=== PATIENT | male | born 1960 | race Caucasian/White ===

== ENCOUNTER 2019-10-15 11:02 | Outpatient (CLI) | payer OTHER, SELFPAY ==
--- NOTE | 2019-10-15 | ECG_ITS ---
Measurements Intervals [place] Rate: 59 P: 41 OR: 165 QRS: -10 QRSD: 85 T: 9 QT: 411 QTc: 409 Interpretive Statements SINUS BRADYCARDIA EARLY PRECORDIAL R/S TRANSITION VOLTAGE CRITERIA FOR LVH BORDERLINE T WAVE ABNORMALITY- INFERIOR LEADS BORDERLINE ECG Electronically Signed On 10-15-2019 14:44:35 CDT by Jeff Yap D.O.
== END 2019-10-15 11:03 | disposition home or self-care (01) ==
PROVIDERS: PCP Family Medicine; Visit Provider Orthopaedic Surgery
DX: Z01.818 Encounter for other preprocedural examination (principal); R94.31 Abnormal electrocardiogram [ECG] [EKG]
CPT/HCPCS: 93005

== ENCOUNTER 2021-03-11 10:05 | Emergency (ER) | payer OTHER, SELFPAY ==
[2021-03-11 10:16] VITALS: BP 147/84; PULSE 76; RESP 18; TEMP 36.8; O2SAT 98
--- NOTE | 2021-03-11 10:33 | ED.URI ---
HPI - URI/Sore Throat General Chief Complaint: Upper Respiratory Infection Stated Complaint: nasal congestion Time Seen by Provider: 03/11/21 10:18 Source: patient and RN notes reviewed Mode of arrival: ambulatory Limitations: no limitations History of Present Illness HPI Narrative: Patient presents today complaining of congestion and rhinorrhea since yesterday. Denies any additional symptoms, but wanted to come in and get checked for sinus infection. He has tried Tylenol Cold and flu with mild relief. He has been vaccinated against COVID-19, but has not yet had an influenza vaccine this season. MD elicited complaint: nasal congestion Related Data Allergies Allergy/AdvReac Type Severity Reaction Status Date / Time naproxen Allergy Mild Itching Verified 03/11/21 10:22 Review of Systems Review of Systems: CONSTITUTIONAL: Denies body aches, fever, chills, or sweats. EYES: Denies visual changes, redness, or discharge. ENT: Denies sore throat, or otalgia.+ Congestion, rhinorrhea CARDIOVASCULAR: Denies chest pain, palpitations, or edema. RESPIRATORY: Denies cough or dyspnea. GASTROINTESTINAL: Denies abdominal pain, nausea, vomiting, or diarrhea. GENITOURINARY: Denies dysuria or hematuria. SKIN: Denies rash, itching, or wounds. MUSCULOSKELETAL: Denies back pain, joint pain, or myalgia. NEUROLOGIC: Denies headache, numbness, tingling, or weakness. PSYCH: Denies depression or anxiety. [facility] Past Medical History Medical History (Updated 03/11/21 @ 10:35 by Dolly Alanis, CYNTHIA, ) Essential hypertension Hyperglycemia Numbness and tingling in left hand Surgical History Surgical History History of carpal tunnel surgery History of total right knee replacement (TKR) Family History Family History Other Hypertension Social History Social History Smoking status: Never smoker Second hand tobacco smoke exposure: No Alcohol intake: never Substance use: never Substance use type: does not use Gender identity (if verbalized by the patient): Male Spiritual care concerns: No Agree to blood products: Yes Comments At time of signature, I have reviewed and agree with nursing past medical, surgical, social and family history unless otherwise noted. Please see nursing chart for further information. There is no relevant family history pertinent to the presenting complaint Exam Narrative: GENERAL: Well-appearing, well-nourished, and in no acute distress. HEAD: Normocephalic, atraumatic. EYES: EOMI. No redness or drainage. Conjunctivae normal. ENT: Mucous membranes pink and moist. Nares clear. No rhinorrhea. TMs normal bilaterally. Throat normal. Uvula midline. NECK: Normal AROM. Supple. No lymphadenopathy. CHEST: No respiratory distress. Clear to auscultation. HEART: Regular rate and rhythm. No murmur appreciated. Normal peripheral pulses. EXTREMITIES: Normal range of motion. No edema. SKIN: Warm, dry, no rash. Capillary refill normal. Normal skin turgor. NEURO: No focal deficits. Alert and oriented x3. Gait steady. PSYCH: Normal affect. No signs of depression or anxiety. Course Vital Signs Vital signs: Vital Signs Temperature 98.2 F 03/11/21 10:16 Pulse Rate 76 03/11/21 10:16 Respiratory Rate 18 03/11/21 10:16 Blood Pressure 147/84 H 03/11/21 10:16 Pulse Oximetry 98 03/11/21 10:16 Temperature 98.2 F 03/11/21 10:16 Pulse Rate 76 03/11/21 10:16 Respiratory Rate 18 03/11/21 10:16 Blood Pressure 147/84 H 03/11/21 10:16 Pulse Oximetry 98 03/11/21 10:16 Reviewed. Pt has been instructed to follow up with his PCP regarding his elevated blood pressure today. MDM - URI/Sore Throat Differential Diagnosis Differential diagnosis: Likely upper respiratory infection, otitis media, sinusitis an
== END 2021-03-11 10:47 | disposition home or self-care (01) ==
PROVIDERS: Emergency Provider Nurse Practitioner; PCP Family Medicine
DX: J06.9 Acute upper respiratory infection, unspecified (principal); I10 Essential (primary) hypertension; Z96.651 Presence of right artificial knee joint
CPT/HCPCS: 99211; G0463

== ENCOUNTER → 2021-09-30 10:17 | Outpatient (CLI) | payer OTHER, SELFPAY ==
--- NOTE | ~2021-09-30 | XR_ITS ---
XR hip RT 2V w AP pelvis DATE: 09/30/2021 10:30 INDICATION: Right hip pain for 6 months TECHNIQUE: AP pelvis. AP and lateral views of right hip COMPARISON: None FINDINGS: No pelvic fracture or bone destruction. Normal alignment at the pubic symphysis and sacroil iac joints. No fracture or dislocation, avascular necrosis or bone destruction of the right hip. There is slight degenerative spurring of the right femoral head. IMPRESSION: Minimal right hip osteoarthritis Reviewed, dictated and finalized at location A.
== END ==
PROVIDERS: PCP Family Medicine; Visit Provider Family Medicine
DX: M25.551 Pain in right hip (principal); M16.11 Unilateral primary osteoarthritis, right hip
CPT/HCPCS: 73502

== ENCOUNTER 2021-10-15 00:48 | Day surgery (SDC) | payer OTHER, SELFPAY ==
[2021-10-13 10:01] VITALS: BMI 33.1
--- NOTE | 2021-10-13 10:03 | SUR.PREOP ---
Report to the Outpatient Waiting Room, entrance under the green pavilion located off [facility], at time _1000 on date _10/15/21 . OR Time: _1200 . - You and your visitor will be asked a series of questions to screen for COVID 19 for your protection. - Only one visitor is allowed at this time. - The patient visitor is requested to leave or wait in car when not with patient. - A mask is required within the hospital. Patients may have clear liquids (water, carbonated beverages, clear teas, apple juice) until 3 hours prior to surgery with a maximum of 20 ounces. - No food from midnight until time of surgery - Infants may have breast milk until 4 hours before surgery, infant formula 6 hours prior to surgery. - Children will be allowed to drink immediately following surgery. If applicable, please bring a bottle or sippy cup to assist with drinking. Juice, water, soda, and popsicles are readily available. For infants on formula, please bring formula the day of surgery. Pacifiers are allowed. Take the following medications with a SIP of water the morning of surgery: ___n/a Medications to discontinue per physician n/a Date to take last dose__n/a Please no make-up, nail taiwanese, hairspray, perfume, deodorant, or body powder the day of surgery. No jewelry (including any body piercings) or valuables the day of surgery, leave them at home. Please take a shower or bath the night before, or the morning of, surgery with an antibacterial soap. Wear comfortable, loose fitting clothing. Children are encouraged to wear pajamas. hibiclens shower am of surgery - Jewelry must be removed prior to entering the operating room. Rings and piercings that are not removed may be cut off. - The hospital will not accept responsibility for valuables. - Please leave all valuables, including medications, at home the day of surgery. If you are going home after surgery, a licensed hyster driver must drive you home. - NO public transportation without another adult. - We recommend that an adult stay with you for 24 hours following discharge. - We also recommend that you do not drive, make important decision, drink alcoholic beverages, or take any drugs that were not prescribed by your health care provider for at least 24 hours after your discharge time. For Pediatric surgeries, we recommend two adults accompany the child home (only one inside the building at this time). Follow any additional instructions given to you from your surgeon. If you or anyone in your household have experienced Covid symptoms in the past week, please notify your surgeon or the nurse liaison at the phone number below for possible testing. Telephone instructions given to _xiomara stephenson and asked if any additional questions and then verbalized understanding. Patient advised to call surgeon office or pre surgery nurse liaison [phone] if any additional questions.
[2021-10-15] MEDS: ACETAMINOPHEN 500 MG TABLET 1000 MG PO (10:37)
[2021-10-15] MEDS: LACTATED RINGERS 1,000 ML 30 ML IV CONT ×2 (10:50→13:36)
--- NOTE | 2021-10-15 11:10 | WPDANESEPPF ---
Anes - Initial Pre Proc Eval Procedure: Operation Date: 10/15/21 12:00 Proposed Procedures p Open Left Inguinal Hernia Repair - Gigi Lorenzo MD Date/Time: 10/15/21 11:10 Surgeon: Gigi Lorenzo MD Pre Op Diagnosis: left inguinal hernia Patient Data Age: 61 Gender: M Height: 1.65 m Weight: 90.45 kg Allergies Allergy/AdvReac Type Severity Reaction Status Date / Time naproxen Allergy Mild Itching Verified 10/15/21 10:29 Home Medications Medication Instructions Recorded Confirmed Type atorvastatin 40 mg tablet (Lipitor) 40 mg PO DAILY #90 tabs 03/30/21 10/15/21 Rx lisinopril 20 mg tablet 20 mg PO DAILY #90 tabs 03/30/21 10/15/21 Rx sildenafil 100 mg tablet (Viagra) 100 mg PO DAILY PRN sexual 09/14/21 10/13/21 Rx activity #14 tabs gabapentin 300 mg capsule 300 mg PO PRN PRN pain 10/13/21 10/15/21 History ibuprofen 800 mg tablet 800 mg PO PRN 10/13/21 10/15/21 History Patient hx anesthesia problems: none Family hx anesthesia problems: none Results Review: All pre-operative results and documents have been reviewed as part of the pre-operative evaluation. [facility] Past Medical History Medical History Erectile dysfunction Essential hypertension Hyperglycemia Hyperlipidemia Numbness and tingling in left hand Surgical History Surgical History History of carpal tunnel surgery History of total right knee replacement (TKR) Family History Family History Father Cerebrovascular accident Other Hypertension Social History Social History Smoking status: Never smoker Second hand tobacco smoke exposure: No Alcohol intake: never Substance use: never Substance use type: does not use Living arrangements: with family Gender identity (if verbalized by the patient): Male Spiritual care concerns: No Agree to blood products: Yes Anes - Eval Final PreProcedure Day of Procedure 10/15/21 11:10 Patient weight: obese Heart: regular rate and rhythm Lungs: clear to auscultation Airway: Mallampati scale class II Neurological: alert and oriented Last oral intake: >/= 8 hours ASA classification: III Emergent: no Anesthesia type and monitoring: general GIVS and standard monitoring Results Review: All pre-operative results and documents have been reviewed as part of the pre-operative evaluation. Informed Consent: The patient's anesthetic plan and its attendant risks and benefits were discussed with the patient/family/POA. Questions were solicited and answers provided to the satisfaction of the patient/family/POA.
[2021-10-15 11:19] VITALS: BP 141/64; PULSE 53; RESP 16; TEMP 36.1; O2SAT 99
--- NOTE | 2021-10-15 11:34 | WPDHPUPDATE1 ---
History and Physical Update Update Date/Time: 10/15/21 11:34 History and Physical has been reviewed, including an updated exam of the patient. There are NO changes in the patient's condition. Risks, benefits, and alternatives have been discussed and questions answered. Patient agrees to proceed with procedure.
[2021-10-15] MEDS: ceFAZolin 2 GM/D5W 50 ML 2 GM/50 ML BAG IVPB (11:47)
[2021-10-15] MEDS: LIDO 1%/EPINEPHRINE/PF 1:200,000 30 ML VIAL XX (11:47)
[2021-10-15 13:17] VITALS: BP 119/66; PULSE 62; RESP 12; O2SAT 95
--- NOTE | 2021-10-15 13:34 | W.PM.PROC2 ---
Procedure Note - Detailed Date of Procedure 10/15/21 Pre-op Diagnosis left inguinal hernia Post-op Diagnosis Same Procedure Performed Left inguinal hernia repair with extra-large PerFix Light plug and patch Surgeon Gigi Lorenzo MD Director Of Assessment Cheryl Borja CORPORATE SAFETY COORDINATOR CORPORATE SAFETY COORDINATOR Anesthesia General (G IV S) and Local (1% lidocaine with epinephrine) Indications Patient was noted by his primary care physician to have a large left inguinal hernia. He has occasional discomfort associated with this. He was seen in the office and is now taken to surgery for left inguinal hernia repair. Findings Large direct left inguinal hernia noted. No indirect hernia. Description of Procedure Patient was taken to surgery and anesthesia was introduced. The left groin and genitalia were prepped and draped. The proposed incision was marked on the skin in the left inguinal region. Local anesthetic was infiltrated into the skin and the deeper subcutaneous tissues. Incision was made deepened through the subcutaneous. Crossing veins were cauterized and divided. We continued our dissection through Gisele's fascia and down to the external oblique aponeurosis. The aponeurosis was then exposed as was the external ring. Additional local was infiltrated deep to the aponeurosis in the area of the spermatic cord. The aponeurosis was opened laterally and extended medially through the external ring. The leaves of the aponeurosis were freed from the underlying inguinal canal contents. A large hernia was evident her. I carefully dissected the hernia sac free from the spermatic cord. Was a large direct hernia. I checked in the spermatic cord and no indirect hernia was noted. I did a resected around the base of the hernia. I then scored through the transversalis fascia circumferentially just off the base with the cautery. The hernia was then dunked into the retroperitoneum, reducing the hernia. The extra-large PerFix Light plug was then placed in the defect. The edges were sutured to the transversalis fascia with interrupted 3-0 Vicryl suture. 3-0 Vicryl suture were then used to markedly reduce the size of the defect by suturing some of the edges to 1 another. The patch was then cut to the appropriate size and placed over the inguinal canal floor. The lateral leaves were passed beyond the cord. I then placed the 1st piece of Xaracoll over the mesh. The cord and ilioinguinal nerve were then placed over the Xaracoll. The ilioinguinal nerve had been left attached to the cord and avoided through the surgery. The external oblique aponeurosis was then closed with interrupted 3-0 Vicryl suture. The 2nd piece of Xaracoll was laid over the aponeurosis. Gisele's fascia was closed with interrupted 3-0 Vicryl suture. The last piece of Xaracoll was then placed in the subcutaneous. The skin was closed with interrupted 4-0 Vicryl subcuticular skin suture. The wound was dressed with Exofin surgical adhesive. The patient was awakened and taken to recovery in good condition. Sponge and needle counts were correct x2. Implants Extra large PerFix Light plug and patch, Xaracoll Estimated Blood Loss -5 Drains No Packing No Pathology None sent Complications No immediate complications Condition Stable Disposition Same day [facility] Billing Surgery - Charge Forward: Surgery Billing (Left inguinal hernia repair)
[2021-10-15 13:40] VITALS: BP 123/78; PULSE 64; RESP 12; O2SAT 97
[2021-10-15 14:10] VITALS: BP 137/66; PULSE 69; RESP 12
[2021-10-15 14:40] VITALS: BP 135/71; PULSE 59; RESP 12
[2021-10-15 15:10] VITALS: BP 123/72; PULSE 59; RESP 12
== END 2021-10-15 15:33 | disposition home or self-care (01) ==
PROVIDERS: PCP Family Medicine; Visit Provider Surgery
PROC: (CPT 49505; principal; 2021-10-15 12:00)
DX: K40.90 Unilateral inguinal hernia, without obstruction or gangrene, not specified as recurrent (principal); I10 Essential (primary) hypertension; R73.9 Hyperglycemia, unspecified; E78.5 Hyperlipidemia, unspecified; E66.9 Obesity, unspecified; Z68.33 Body mass index [BMI] 33.0-33.9, adult; R20.2 Paresthesia of skin; R20.0 Anesthesia of skin
CPT/HCPCS: 49505; A9270; C1781; J0690; J1100; J1170; J2250; J2405; J2704; J3010; J7120

== ENCOUNTER 2021-11-22 10:24 | Emergency (ER) | payer OTHER, SELFPAY ==
--- NOTE | ~2021-11-22 | XR_ITS ---
EXAMINATION: XR abdomen/kub 1V DATE: 11/22/2021 11:02 INDICATION: Right lower back pain with urinary frequency TECHNIQUE: A supine view of the abdomen on 2 radiographs was obtained. COMPARISON: 01/22/2014 FINDINGS: No dilated loops of gas-filled bowel to suggest obstruction. Couple prominent unchanged phleboliths i n the left hemipelvis. No urolithiasis. Mild lumbar levoscoliosis with severe spondylosis. IMPRESSION: 1. No urolithiasis. Reviewed, dictated and finalized at location A. IMPRESSION: 1. No urolithiasis.
[2021-11-22 10:38] VITALS: BP 154/80; PULSE 70; RESP 20; TEMP 36.6; O2SAT 100
--- NOTE | 2021-11-22 11:06 | ED.GENADULT ---
HPI - General Adult General Chief complaint: Back Pain/Injury Stated complaint: Lower Rt Back Pain,Groin Pain,Frequent Urination Source: patient Mode of arrival: ambulatory Limitations: no limitations History of Present Illness HPI narrative: Patient presents for evaluation of right lower back pain and right inguinal pain intermittently for the last 2 to 3 days. He feels like the pain in his right lower back is similar to sensation of a pulled muscle . Pain in right inguinal region is burning sensation. He cannot identify any precipitating cause or injury. Pain occurs multiple times per day and lasts about five minutes. Pain in right lower back does not always occur at same time as pain in right inguinal region. He currently denies any pain. Patient does report urinary frequency. No fever, chills, nausea, vomiting, dysuria, hematuria, testicular pain or urethral discharge. He is sexually active with his spouse who is not experiencing any symptoms. He had a left inguinal hernia repair about one month ago and was not sure if symptoms were related. Last bowel movement was yesterday, solid in consistency, without the presence of blood or mucous in the stool. Related Data Home Medications Medication Instructions Recorded Confirmed gabapentin 300 mg capsule 300 mg PO PRN PRN pain 10/13/21 11/22/21 ibuprofen 800 mg tablet 800 mg PO PRN 10/13/21 11/22/21 Allergies Allergy/AdvReac Type Severity Reaction Status Date / Time naproxen Allergy Mild Itching Verified 11/22/21 10:27 Review of Systems Review of Systems: CONSTITUTIONAL: Denies fever, chills, or sweats. EYES: Denies visual changes, redness, or discharge. ENT: Denies rhinorrhea, congestion, sore throat, or otalgia. CARDIOVASCULAR: Denies chest pain, palpitations, or edema. RESPIRATORY: Denies cough or dyspnea. GASTROINTESTINAL: Denies abdominal pain, nausea, vomiting, or diarrhea. GENITOURINARY: Reports urinary frequency. Denies dysuria or hematuria. SKIN: Denies rash or itching. MUSCULOSKELETAL: Reports right lower back pain and right inguinal pain. Denies joint pain. NEUROLOGIC: Denies headache, numbness, dizziness, or weakness. PSYCHIATRIC: Denies anxiety or depression. [facility] Past Medical History Medical History Erectile dysfunction Essential hypertension Hyperglycemia Hyperlipidemia Numbness and tingling in left hand Surgical History Surgical History History of carpal tunnel surgery History of left inguinal hernia repair 10/15/2021 History of total right knee replacement (TKR) Family History Family History Father Cerebrovascular accident Other Hypertension Social History Social History Smoking status: Never smoker Second hand tobacco smoke exposure: No Alcohol intake: never Substance use: never Substance use type: does not use Gender identity (if verbalized by the patient): Male Spiritual care concerns: No Agree to blood products: Yes Exam Narrative: GENERAL: Well-appearing, well-nourished, and in no acute distress. HEAD: Normocephalic, atraumatic. EYES: PERRLA and EOMI. ENT: Nares clear, no rhinorrhea or epistaxis. Mucous membranes moist. Oropharynx without tonsillar hypertrophy exudate or other lesions. Bilateral TMs pearly lama nonbulging NECK: Supple. No adenopathy or masses. No carotid bruits or JVD CHEST: Clear to auscultation. No respiratory distress. No wheezes rales or rhonchi HEART: Regular rate and rhythm. No murmur heard. Normal peripheral pulses. ABDOMEN: Soft, nontender, nondistended, normal active bowel sounds. EXTREMITIES: Normal range of motion. No edema. SKIN: Linear surgical incision to left inguinal region which is well approximated without any associated erythema
== END 2021-11-22 11:30 | disposition home or self-care (01) ==
PROVIDERS: Emergency Provider Nurse Practitioner; PCP Family Medicine
DX: M54.50 Low back pain, unspecified (principal); R10.31 Right lower quadrant pain; I10 Essential (primary) hypertension; E78.5 Hyperlipidemia, unspecified; Z96.651 Presence of right artificial knee joint
CPT/HCPCS: 74018; 81003; 99213; G0463

== ENCOUNTER 2023-11-13 09:24 | Emergency (ER) | payer MEDICARE, OTHER, SELFPAY ==
[2023-11-13 09:33] VITALS: BP 125/59; PULSE 65; RESP 18; TEMP 36.9; O2SAT 95
--- NOTE | 2023-11-13 09:41 | ED.GENADULT ---
HPI - General Adult General Chief complaint: Dental/Oral Stated complaint: Mouth/Throat Irritation Source: patient Mode of arrival: ambulatory Limitations: no limitations History of Present Illness HPI narrative: 63-year-old male presents to [facility] with complaints of tongue feeling ?raw? for the past 2-3 days. Patient reports he has not talked his primary care provider concerning symptoms. Patient reports that did have COVID approximately 2-3 weeks ago. Patient denies recent antibiotic use. Patient denies fever, body aches, chills, nausea, vomiting, diarrhea, chest pain, shortness of breath or wheezing. Onset (ago): day(s) (3) Location: mouth Relieving factors: none Exacerbating factors: none Associated symptoms: denies other symptoms Treatments prior to arrival: none Related Data Home Medications Medication Instructions Recorded Confirmed sulfasalazine 500 mg tablet 0.5 g PO BID 09/28/23 11/13/23 hydroxychloroquine 200 mg tablet 200 mg PO BID 11/13/23 11/13/23 (Plaquenil) peg 400-propylene glycol 0.4 %-0.3 2 drp EACH EYE DAILY 11/13/23 11/13/23 % eye drops (Systane (propylene glycol)) Allergies Allergy/AdvReac Type Severity Reaction Status Date / Time No Known Allergies Allergy Verified 11/13/23 09:26 Review of Systems Constitutional: Constitutional: Denies chills, Denies fatigue, Denies fever(s) and Denies weakness ENT: Denies vertigo, Denies dizziness, Denies epistaxis and Denies nasal congestion Comments: Raw feeling to tongue Cardiovascular: Cardiovascular: Denies chest pain Respiratory: Respiratory: Denies cough, Denies dyspnea and Denies wheezing Gastrointestinal: Gastrointestinal: Denies diarrhea, Denies nausea and Denies vomiting Integumentary/Breasts: Skin/Breast: Denies pruritus, Denies erythema, Denies rash and Denies skin ulcer PMFSH Past Medical History Medical History Arthritis Encounter for general adult medical examination with abnormal findings Encounter for immunization Encounter for other specified surgical aftercare Encounter for screening for malignant neoplasm of prostate Erectile dysfunction Essential hypertension Hematuria Hyperglycemia Hyperlipidemia Numbness and tingling in left hand Screening for prostate cancer Screening, deficiency anemia, iron Surgical History Surgical History History of carpal tunnel surgery History of left inguinal hernia repair 10/15/2021 History of total right knee replacement (TKR) Family History Family History Father Cerebrovascular accident Other Hypertension Social History Social History Smoking status: Never smoker Second hand tobacco smoke exposure: No Alcohol intake: never Substance use: never Substance use type: does not use Do You Feel Safe in your Home?: Yes Lack of Transportation: No Lack of Food: Never True Current Housing: I Have Housing Concerned About Future Housing: No Difficulty Paying Gas/Electric Bills: No Difficulty Paying for Meds: No Currently Unemployed: No Education: Bachelor's Degree Difficulty w/ Childcare or Family Care: No Living arrangements: with family Occupation/Education: retired Gender identity (if verbalized by the patient): Male Sexual Orientation (if Verbalized by the Patient): Straight or Heterosexual Spiritual care concerns: No Agree to blood products: Yes Comments At time of signature, I agree with nursing past medical, surgical, social and family history. There is no relevant family history pertinent to the presenting complaint. Exam Const: General: healthy appearing and no acute distress Nutritional Appearance: well nourished Orientation/consciousness: patient oriented x3 Limitations: no limitations [facility]
== END 2023-11-13 09:46 | disposition home or self-care (01) ==
PROVIDERS: Emergency Provider Nurse Practitioner Family; PCP Family Medicine
DX: B37.0 Candidal stomatitis (principal); M19.90 Unspecified osteoarthritis, unspecified site; I10 Essential (primary) hypertension; E78.5 Hyperlipidemia, unspecified; Z96.651 Presence of right artificial knee joint
CPT/HCPCS: 99213; G0463

== ENCOUNTER 2024-11-01 12:07 | Outpatient (CLI) | payer MEDICARE, OTHER, SELFPAY ==
--- OUTSIDE RECORDS SUMMARY | 2024-11-01 12:11 | XMS_ITS | Clinical Summary ---
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 Gender Identity Not on file Sexual Orientation Not on file Plan of Treatment Health Maintenance Due Date Last Done Comments Pre-Diabetes and Diabetes Screening 1960 COLORECTAL SCREENING 2003 Colorectal Cancer Screening 2003 FIT-DNA Q 3 years 2003 FIT/FOBT Q 1 year 2003 Flex Sig/CT Colonography Q 5 years 2003 DTAP/TDAP/TD VACCINES (2 - T d or Tdap) 04/25/2020 04/25/2010 ZOSTER VACCINE (2 of 2) 12/23/2022 10/28/2022 INFLUENZA VACCINE (#1) 2024 4, 02/07/2017, 01/24/2015, Additional history exists RSV VACCINE (60+ or ) (1 - 1-dose 75+ series) 2033 PNEUMOCOCCAL VACCINE 50+ YEARS Completed 07/06/2022 , 09/20/2013 Insurance [employer]
--- NOTE | 2024-11-01 12:39 | ECHO_ITS ---
Patient Info Name: Dmitriy Islas Age: 64 years : 1960 Gender: Male Ht: 65 in Wt: 199 lbs BSA: 2.07 m2 HR: 84 bpm BP: 125 / 70 mmHg Technical Quality: Good Exam Date: 11/01/2024 12:45 PM Patient Status: O Admit Date: 11/01/2024 Exam Type: CA echo doppler color flow Complete two-dimensional, color flow and Doppler transthoracic echocardiogram is performed. Grid Molder: Raquel Villa Attending Provider: Ling Archer Summary 1. Complete two-dimensional, color flow and Doppler transthoracic echocardiogram is performed. 2. Left ventricular chamber dimension is normal. 3. Left ventricular systolic function is normal, estimated at 60-65. 4. The left ventricular diastolic function is grade I diastolic dysfunction. 5. E/e' 6 is not elevated. 6. Left atrial chamber dimension is mildly enlarged. Left Ventricle E/e' 6 is not elevated. Left ventricular chamber dimension is normal. Left ventricular systolic function is normal, estimated at 60-65. The left ventricular diastolic function is grade I diastolic dysfunction. Right Ventricle Right ventricular chamber dimension is normal. Right ventricular systolic function is normal and with normal TAPSE 2.3 cm. Left Atria Left atrial chamber dimension is mildly enlarged. Right Atria Right atrial chamber dimension is normal. Aortic Valve The aortic valve is trileaflet. There is moderate aortic valve sclerosis. There is mild aortic valve stenosis. There is no aortic valve regurgitation. Pulmonic Valve There is no pulmonic regurgitation. Mitral Valve There is no mitral valve stenosis. There is no mitral valve regurgitation. Tricuspid Valve There is mild tricuspid valve regurgitation. No pulmonary hypertension, estimated pulmonary arterial systolic pressure is 37 mmHg. Pericardium/Pleural There is no pericardial effusion. Inferior Vena Cava Normal inferior vena cava with >50% collapse upon inspiration consistent with normal right atrial pressure, 5 mmHg. Aorta The aortic root size at the sinus of Valsalva is normal. Left Ventricular Outflow Tract Name Value Normal LVOT 2D LVOT Diameter 2.0 cm LVOT Doppler LVOT Peak Velocity 243 cm/s LVOT Peak Gradient 24 mmHg LVOT Mean Gradient 12 mmHg LVOT VTI 51 cm LVOT Stroke Volume 165 ml LVOT CO 19.9 l/min LVOT CI 9.6 l/min/m2 Pulmonic Valve Name Value Normal RVOT Doppler RVOT Peak Velocity 93 cm/s RVOT Peak Gradient 3 mmHg PV Doppler PV Peak Velocity 142 cm/s PV Peak Gradient 8 mmHg Mitral Valve Name Value Normal MV Diastolic Function MV E Peak Velocity 84 cm/s MV A Peak Velocity 85 cm/s MV E/A 1.0 MV Decel Time (PW) 224 ms MV Annular TDI MV E/e' (Septal) 7.1 MV E/e' (Lateral) 5.7 MV E/e' (Average) 6.4 Tricuspid Valve Name Value Normal TV Regurgitation Doppler TR Peak Velocity 282 cm/s TR Peak Gradient 32 mmHg Estimated PAP/RSVP RA Pressure 5 mmHg <=5 PA Systolic Pressure 37 mmHg <36 RV Systolic Pressure 37 mmHg <36 Aortic Valve Name Value Normal AV Doppler AV Peak Velocity 215 cm/s AV Peak Gradient 19 mmHg AV Area (Cont Eq Roberto Carlos) 3.6 cm2 AV DI (Roberto Carlos) 1.13 AV Regurgitation 2D LVOT Area 3.2 cm2 Ventricles Name Value Normal LV Dimensions 2D/MM IVS Diastolic Thickness (2D) 0.9 cm 0.6-1.0 LVID Diastole (2D) 3.4 cm 4.2-5.8 LVIW Diastolic Thickness (2D) 0.9 cm 0.6-1.0 LVID Systole (2D) 2.2 cm 2.5-4.0 LVOT Diameter 2.0 cm LV Mass (2D Cubed) 91.43 g 88.00-224.00 LV Mass Index (2D Cubed) 44 g/m2 49-115 Relative Wall Thickness (2D) 0.54 <=0.42 LV Fractional Shortening/Ejection Fraction 2D/MM LV Fractional Shortening (2D) 36 % 25-43 LV EF (2D Teichholz) 66 % LV Diastolic Volume (4C MOD) 101 ml LV EF (4C MOD) 61 % LV Diastolic Volume (2C MOD) 93 ml LV EF (2C MOD) 64 % LV Diastolic Volume (BP MOD) 97 ml 62-150 LV Diastolic Volume Index (BP MOD) 47 ml/m2 34-74 LV Systolic Volume (BP MOD) 37 ml 21-61 LV Systolic Volume Index (BP MOD) 18 ml/m2 11-31 LV EF (BP MOD) 61 % 52-72 LV Diastolic Length (4C) 8.6 cm LV Systolic Length (4C) 6.4 cm LV Stroke Volume (4C MOD) 62 ml Atria Name Value Normal LA Dimensions LA Volume (4C A-L) 26 ml LA Volume (BP A-L) 35 ml RA Dimensions RA Area (4C) 17.4 cm2 <=18.0 Report Signatures
== END 2024-11-01 12:08 | disposition home or self-care (01) ==
PROVIDERS: PCP Family Medicine; Visit Provider Student in an Organized Health Care Education/Training Program
DX: R01.1 Cardiac murmur, unspecified (principal)
CPT/HCPCS: 93306

== ENCOUNTER 2025-01-13 14:29 | Emergency (ER) | payer MEDICARE, OTHER, SELFPAY ==
--- OUTSIDE RECORDS SUMMARY | 2025-01-13 14:31 | XMS_ITS | Clinical Summary ---
Author Organization [facility] Address [facility] [place] [address] Care Team Providers Care Director Name Role Phone Unavailable Primary Care Provider Unavailabl e Social History Tobacco Use Types Packs/Day Years Used Date Smoking Tobacco: Never Assessed Sex and Gender Information Value Date Recorded Sex Assigned at Not on file Legal Sex Male 8:03 PM CDT Gender Identity Not on file Sexual Orientation Not on file Plan of Treatment Health Maintenance Due Date Last Done Comments Colorectal Cancer Screening Colonoscopy (10 Years) 1960 Hepatitis C 01/21/1976 DTaP, Tdap and Td Vaccines ( 1 - Tdap) 1977 Pneumococcal Vaccine: 50+ Ye ars (1 of 1 - PCV) 01/21/2008 Zoster Vaccines (1 of 2) 01/21/2008 COVID-19 Vaccine (1 - 2023-2 5 season) 2024 RSV Immunization or 60+ Years (1 - 1-dose 75+ series) 2033 Meningococcal B Vaccine Aged Out No l onger eligible based on patient's age to complete this topic Meningococcal Vaccine Aged Out No krunal lise eligible based on patient's age to complete this topic RSV Immunizations Under 20 Months Aged Out No longer eligible based on patient's age to complete this topic
--- OUTSIDE RECORDS SUMMARY | 2025-01-13 14:31 | XMS_ITS | Clinical Summary ---
Author Organization [facility] [employer] 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
--- NOTE | 2025-01-13 14:32 | ED.BACK ---
HPI - Back Pain/Injury General Chief Complaint: Back Pain/Injury Stated Complaint: Lower Back Pain Time Seen by Provider: 01/13/25 14:31 Source: patient Mode of arrival: ambulatory Limitations: no limitations History of Present Illness HPI Narrative: Dmitriy is a 64-year-old male patient presenting to the clinic today with complaints of right low back pain x1 week. He reports he is having a burning sensation to the right lower back. Denies any injury. States the pain comes and goes-burning sensation. Rates the pain a 6/10 when the pain is active. Recently started leflunomide 1 month ago. Contacted his PCP last week and they told him to stop the medication for 2 weeks although they did not think that that was the likely cause of his back pain. He has not been taking it for 1 week. He denies any urinary symptoms, loss of bowel bladder, or saddle anesthesia. No pain with movement. No pain currently. Related Data Home Medications ?Medication ?Instructions ?Recorded ?Confirmed ?Last Taken ?Type peg 400-propylene glycol 0.4 %-0.3 2 drp EACH EYE DAILY 11/13/23 01/13/25 Unknown History % eye drops (Systane (propylene glycol)) Allergies Allergy/AdvReac Type Severity Reaction Status Date / Time No Known Allergies Allergy Verified 01/13/25 14:33 Review of Systems Review of Systems: Pertinent positives per HPI. Patient denies any fever, chills, rash, headache, visual changes, dizziness, cough, runny nose, sore throat, shortness of breath, chest pain, palpitations, nausea, vomiting, diarrhea, constipation, abdominal pain, or any urinary issues. [facility] Past Medical History Medical History Arthritis Encounter for immunization Encounter for other specified surgical aftercare Hematuria Encounter for screening for malignant neoplasm of prostate Erectile dysfunction Encounter for general adult medical examination with abnormal findings Screening for prostate cancer Screening, deficiency anemia, iron Hyperlipidemia Essential hypertension Hyperglycemia Numbness and tingling in left hand Surgical History Surgical History History of left inguinal hernia repair 10/15/2021 History of carpal tunnel surgery History of total right knee replacement (TKR) Family History Family History Father Cerebrovascular accident Other Hypertension Social History Social History Smoking status: Never smoker Second hand tobacco smoke exposure: No Alcohol intake: never Substance use: never Substance use type: does not use Do You Feel Safe in your Home?: Yes Lack of Transportation: No Lack of Food: Never True Current Housing: I Have Housing Concerned About Future Housing: No Difficulty Paying Gas/Electric Bills: No Difficulty Paying for Meds: No Currently Unemployed: No Education: Bachelor's Degree Difficulty w/ Childcare or Family Care: No Living arrangements: with family Occupation/Education: retired Gender identity (if verbalized by the patient): Male Sexual Orientation (if Verbalized by the Patient): Straight or Heterosexual Spiritual care concerns: No Agree to blood products: Yes Comments At the time of my signature, I reviewed and agree with the nursing past medical, surgical, social, and family history. There is no relevant family history pertinent to the patient complaint. Exam Narrative: General: Well-developed, well nourished, in no apparent distress Head: Normocephalic, atraumatic. Cardio: Regular rate and rhythm, s1 and s2 normal, no murmur appreciated. Resp: Clear to auscultation bilaterally, no rhonchi, rales, wheezing or rubs. Musculoskeletal: No deformity, non-tender to palpation, grossly normal range of motion, muscle strength strong and equal in BLE. SLT negative, patellar reflexes 2/4 bilaterally, negative foot drop, normal gait and station Course Course Emergency Course: Portions of this record may have been created with voice recognition software. Level of Care: Express Care Visit Vital Signs Vital signs: Vital Signs Temperature 36.3 C L 01/13/25 14:34 Pulse Rate 74 01/13/25 14:34 Respiratory Rate 18 01/13/25 14:34 Blood Pressure 143/71 H 01/13/25 14:34 Pulse Oximetry 97 01/13/25 14:34 Oxygen Delivery Room Air 01/13/25 14:34 Temperature 36.3 C L 01/13/25 14:34 Pulse Rate 74 01/13/25 14:34 Respiratory Rate 18 01/13/25 14:34 Blood Pressure 143/71 H 01/13/25 14:34 Pulse Oximetry 97 01/13/25 14:34 Oxygen Delivery Room Air 01/13/25 14:34 Vital signs reviewed MDM - Back Pain/Injury MDM Narrative Medical decision making narrative: At the time of visit patient is resting comfortably on the exam table. Patient appears to be nontoxic. Complaints of right low back pain x1 week. He reports he is having a burning sensation to the right lower back. Denies any injury. States the pain comes and goes-burning sensation. Rates the pain a 6/10 when the pain is active. Recently started leflunomide 1 month ago. Contacted his PCP last week and they told him to stop the medication for 2 weeks although they did not think that that was the likely cause of his back pain. He has not been taking it for 1 week. He denies any urinary symptoms, loss of bowel bladder, or saddle anesthesia. No pain with movement. Not currently actively having pain. Plan: I suspect patient has right-sided lower back pain possibly neuropathy due to the leflunomide medication. Recommend lidocaine patches and may restart his gabapentin. Supportive measures were discussed with the patient and they voiced understanding discharge instructions and agrees to treatment plan. Return precautions reviewed Differential Diagnosis Differential diagnosis: Likely lumbar radiculopathy, sciatica (Neuropathy, muscle strain) and strain of lumbar region Discharge Plan Discharge Clinical Impression: Acute right-sided low back pain Qualifiers: Sciatica presence: without sciatica Qualified Code(s): M54.50 - Low back pain, unspecified Patient Disposition: Home Condition: Stable Instructions: Antibiotic Form, Peripheral Neuropathy (ED), Back Pain (ED) Additional Instructions: Leflunomide can cause peripheral neuropathy in your back. Apply lidocaine patches to the affected area to help alleviate pain May continue gabapentin as prescribed/discussed May try taking Tylenol/ibuprofen as needed for pain May try applying heat or ice to the affected area to help alleviate pain May try topical cream such as Aspercreme or blue emu to the affected area to help alleviate pain Follow-up with your primary care doctor next week as discussed Patient Language: [place] Citizen Prescriptions: No Action Systane (propylene glycol) 0.4-0.3 % drops 2 drp EACH EYE DAILY sulfasalazine 500 mg tablet 0.5 g PO BID Qty: 1 0RF Rx Instructions: give with food (meal/snack) tadalafil [Cialis] 20 mg tablet 20 mg PO DAILY PRN (Reason: sexual activity) Qty: 30 3RF Rx Instructions: administer approximately 30min before sexual activity; do not use more than 1 dose per 24hrs lisinopril 30 mg tablet 30 mg PO DAILY Qty: 90 3RF gabapentin 300 mg capsule 300 mg PO TID PRN (Reason: pain) Qty: 270 1RF atorvastatin [Lipitor] 40 mg tablet 40 mg PO DAILY Qty: 90 3RF ibuprofen 800 mg tablet 800 mg PO Q8H PRN (Reason: pain) Qty: 90 1RF Follow-up/Referrals: Renee Perez MD [Primary Care Provider, [facility]] Time of Disposition: 14:54 Quality NIHSS Nursing Documentation ED NIHSS nursing documentation: reviewed/agree
[2025-01-13 14:34] VITALS: BP 143/71; PULSE 74; RESP 18; TEMP 36.3; O2SAT 97
== END 2025-01-13 14:55 | disposition home or self-care (01) ==
PROVIDERS: Emergency Provider Nurse Practitioner Family; PCP Family Medicine
DX: M54.50 Low back pain, unspecified (principal); I10 Essential (primary) hypertension; E78.5 Hyperlipidemia, unspecified; M19.90 Unspecified osteoarthritis, unspecified site
CPT/HCPCS: 99212; G0463

== ENCOUNTER 2025-02-12 09:43 | Emergency (ER) | payer MEDICARE, OTHER, SELFPAY ==
--- NOTE | ~2025-02-12 | XR_ITS ---
EXAMINATION: XR chest 2V, 02/12/2025 10:07 CDT HISTORY: SOB COMPARISON: No comparisons available. Technique: 2 views obtained. Findings: The lungs are clear, no effusion. No pneumothorax. Heart is normal size. Mediastinal and hilar contours are within normal limits. Bony thorax no acute abnormality. Impression: No acute cardiopulmonary abnormality. Reviewed, dictated and finalized at location P. Impression: No acute cardiopulmonary abnormality.
[2025-02-12 09:58] VITALS: BP 115/60; PULSE 87; RESP 18; TEMP 36.2; O2SAT 94
--- NOTE | 2025-02-12 10:01 | ED.SOB ---
HPI - SOB/Dyspnea General Chief Complaint: Upper Respiratory Infection Stated Complaint: Chest tightness, SOB Time Seen by Provider: 02/12/25 10:05 Mode of arrival: ambulatory Limitations: no limitations History of Present Illness HPI Narrative: 65-year-old male presents with concern for an episode back pain and shortness of breath today while he was outside working in the yard. He reports symptoms have improved. He denies chest pain or current shortness of breath. He reports this has happened to him in the past with similar activity. He recently was diagnosed with a heart murmur and had an echocardiogram and was started on a water pill. He reports he has had a cough recently but no runny nose, stuffy nose. He denies fever, body aches, chills. MD elicited complaint: shortness of breath Related Data Home Medications ?Medication ?Instructions ?Recorded ?Confirmed ?Last Taken ?Type peg 400-propylene glycol 0.4 %-0.3 2 drp EACH EYE DAILY 11/13/23 01/13/25 Unknown History % eye drops (Systane (propylene glycol)) Allergies Allergy/AdvReac Type Severity Reaction Status Date / Time No Known Allergies Allergy Verified 02/12/25 09:45 Review of Systems Review of Systems: CONSTITUTIONAL: Denies malaise, chills, or fever. Reports an episode of sweats ENT: Denies rhinorrhea, congestion, sinus pain, otalgia or sore throat. CARDIOVASCULAR: Denies chest pain, palpitations, or edema. RESPIRATORY: Reports cough. Reports an episode of shortness of breath GASTROINTESTINAL: Denies abdominal pain, nausea, vomiting, MUSCULOSKELETAL: Reports an episode of back pain NEUROLOGIC: Denies numbness, weakness, or headache. All systems reviewed & are unremarkable except as noted in HPI and below [facility] Past Medical History Medical History Arthritis Encounter for immunization Encounter for other specified surgical aftercare Hematuria Encounter for screening for malignant neoplasm of prostate Erectile dysfunction Encounter for general adult medical examination with abnormal findings Screening for prostate cancer Screening, deficiency anemia, iron Hyperlipidemia Essential hypertension Hyperglycemia Numbness and tingling in left hand Surgical History Surgical History History of left inguinal hernia repair 10/15/2021 History of carpal tunnel surgery History of total right knee replacement (TKR) Family History Family History Father Cerebrovascular accident Other Hypertension Social History Social History Smoking status: Never smoker Second hand tobacco smoke exposure: No Alcohol intake: never Substance use: never Substance use type: does not use Do You Feel Safe in your Home?: Yes Lack of Transportation: No Lack of Food: Never True Current Housing: I Have Housing Concerned About Future Housing: No Difficulty Paying Gas/Electric Bills: No Difficulty Paying for Meds: No Currently Unemployed: No Education: Bachelor's Degree Difficulty w/ Childcare or Family Care: No Living arrangements: with family Occupation/Education: retired Gender identity (if verbalized by the patient): Male Sexual Orientation (if Verbalized by the Patient): Straight or Heterosexual Spiritual care concerns: No Agree to blood products: Yes Comments At time of signature, agree with nursing past medical, surgical, social and family history. There is no relevant family history pertinent to the presenting complaint Exam Narrative: GENERAL: Well-appearing, well-nourished, and in no acute distress. HEAD: Normocephalic, atraumatic. EYES: PERRLA, sclera clear, and EOMI. No nystagmus. ENT: Nares clear. Mucous membranes moist. NECK: Supple. No jugular venous distension. Carotids were easily palpable bilaterally. CHEST: No respiratory distress. Clear to auscultation. No bony deformities, no asymmetry. Speaks in full sentences. HEART: Regular rate and rhythm. No murmur heard. Normal peripheral pulses. EXTREMITIES: Normal range of motion. No edema. Normal strength and sensation. SKIN: Warm, dry, no visible rash. NEURO: Alert and oriented x3. PSYCH: Normal mood and affect Course Course Emergency Course: Patient is aware of diagnosis, understands and agrees to treatment plan. Anticipatory guidance given. Patient agrees to follow-up as directed and is aware of reasons to seek care at the emergency department. Portions of this record may have been created with voice recognition software Level of Care: Express Care Visit Vital Signs Vital signs: Vital Signs Temperature 97.1 F L 02/12/25 09:58 Pulse Rate 87 02/12/25 09:58 Respiratory Rate 18 02/12/25 09:58 Blood Pressure 115/60 02/12/25 09:58 Pulse Oximetry 94 02/12/25 09:58 Oxygen Delivery Room Air 02/12/25 09:58 Temperature 97.1 F L 02/12/25 09:58 Pulse Rate 87 02/12/25 09:58 Respiratory Rate 18 02/12/25 09:58 Blood Pressure 115/60 02/12/25 09:58 Pulse Oximetry 94 02/12/25 09:58 Oxygen Delivery Room Air 02/12/25 09:58 Reviewed. MDM - SOB/Dyspnea MDM Narrative Medical decision making narrative: I evaluated this patient in the [facility]. History is obtained from patient who is an independent historian and physical exam was performed.? Available medical records were reviewed. ? Exam findings and relevant testing show no acute concerns or changes; patient is non-toxic appearing and is in no distress. ? Differential diagnosis and treatment plan were discussed with the patient. Patient agrees with discussion and after shared medical decision making agrees with plan of care. All questions were answered to the patient's satisfaction. Patient's EKG is unchanged from previous EKG, patient's chest x-ray is normal, exam is normal. Patient reports he has been following up with his primary care doctor for his intermittent back pain. Patient is denying any current symptoms. Offered patient transfer to emergency room for further evaluation for which she declined, he will call his primary doctor today. Patient is appropriate for outpatient treatment and follow-up. Imaging Data My impression: Images reviewed, interpreted by radiologist, agree, see report. Radiologist's impression: EXAMINATION: XR chest 2V, 02/12/2025 10:07 CDT HISTORY: SOB COMPARISON: No comparisons available. Technique: 2 views obtained. Findings: The lungs are clear, no effusion. No pneumothorax. Heart is normal size. Mediastinal and hilar contours are within normal limits. Bony thorax no acute abnormality. Impression: No acute cardiopulmonary abnormality. ECG Data EKG #1: ECG completion date: 02/12/25 ECG completion time: 09:59 Prior ECG tracings: available for review Interpretation: Rate 82, MN interval 156, QRS duration 86, QT 4 0 for EKG Interpretation: normal rate and sinus rhythm Critical Care Time Critical Care Time Critical Care Time: No Discharge Plan Discharge Clinical Impression: Shortness of breath Patient Disposition: Home Condition: Stable Instructions: Shortness of Breath (ED) Additional Instructions: 1) Please follow-up with your primary care doctor in the next 1-2 days. 2) If you have any worsening of symptoms or any other urgent concerns please go to the ER. 3) Please take medications as prescribed and continue taking your home medications as usual. 4) Please read and follow information included in discharge instructions. Patient Language: Fijian Prescriptions: No Action Systane (propylene glycol) 0.4-0.3 % drops 2 drp EACH EYE DAILY sulfasalazine 500 mg tablet 0.5 g PO BID Qty: 1 0RF Rx Instructions: give with food (meal/snack) tadalafil [Cialis] 20 mg tablet 20 mg PO DAILY PRN (Reason: sexual activity) Qty: 30 3RF Rx Instructions: administer approximately 30min before sexual activity; do not use more than 1 dose per 24hrs lisinopril 30 mg tablet 30 mg PO DAILY Qty: 90 3RF gabapentin 300 mg capsule 300 mg PO TID PRN (Reason: pain) Qty: 270 1RF atorvastatin [Lipitor] 40 mg tablet 40 mg PO DAILY Qty: 90 3RF ibuprofen 800 mg tablet 800 mg PO Q8H PRN (Reason: pain) Qty: 90 1RF Follow-up/Referrals: Renee Perez MD [Primary Care Provider, Family Practice] - 2 Days Referral Note: Patient was seen for a transient episode of SOB, sweats, and back pain. ECG and chest x-ray done. Patient chose to follow-up with PCP instead of being evaluated in ER Time of Disposition: 10:29
--- NOTE | 2025-02-12 10:06 | ECG_ITS ---
Test Date: 2025-02-12 09:59:15 Measurements Intervals [place] Rate: 82 P: 41 TX: 156 QRS: -7 QRSD: 86 T: 43 QT: 404 QTc: 475 Interpretive Statements SINUS RHYTHM EARLY PRECORDIAL R/S TRANSITION VOLTAGE CRITERIA FOR LVH BASELINE ARTIFACT- I, II, III, AVR, AVF BORDERLINE ECG No previous ECG available for comparison Electronically Signed On 02-12-2025 10:10:06 CDT by Jeff Yap D.O.
--- OUTSIDE RECORDS SUMMARY | 2025-02-12 11:16 | XMS_ITS | Clinical Summary ---
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
--- OUTSIDE RECORDS SUMMARY | 2025-02-12 11:16 | XMS_ITS | Clinical Summary ---
Author Organization [facility] [place] [address] Care Team Providers Care Traveling Engineer Name Role Phone Unavailable Primary Care Provider [...] 1 - Tdap) 1977 Pneumococcal Vaccine: 50+ Years (1 of 1 - PCV) 01/21/2008 Zoster Vaccines (1 of 2) 01/21/2008 COVID-19 Vaccine (1 - 2024-2 6 season) 2024 Influenza Adult (#1) 2025 02/06/2017, 02/12/2013 RSV Immunization or 60+ Years (1 - 1-dose 75+ series) 2033 Hepatitis A Vaccines Aged Out No long er eligible based on patient's age to complete this topic Meningococcal B Vaccine Aged Out No l onger eligible based on patient's age to complete this topic Meningococcal Vaccine Aged Out No krunal lise eligible based on patient's age to complete this topic RSV Immunizations Under 20 Months Aged Out No longer eligible b ased on patient's age to complete this topic
== END 2025-02-12 10:31 | disposition home or self-care (01) ==
PROVIDERS: Emergency Provider Nurse Practitioner; PCP Family Medicine
DX: R06.02 Shortness of breath (principal); E78.5 Hyperlipidemia, unspecified; I10 Essential (primary) hypertension
CPT/HCPCS: 71046; 93005; 99213; G0463